=== PATIENT | male | born 1940 | race Caucasian/White ===

== ENCOUNTER 2018-01-06 06:21 | Day surgery (SDC) | payer MEDICARE ==
[~2018-01-06 06:21] MED LIST: Acetaminophen TAB* 325 MG PO PRN; Buffered Lidocaine 0.9% SYRIN* 5 ML/SYR SYRINGE INTRADERM ONE; mitoMYcin PWD* 0.2 MG in Sterile Water for Inj* 1 ML OPHTHALMIC SCH
[2018-01-06] MEDS ORDERED: fentaNYL* 50 MCG/ML 2 ML VIAL (100 MCG VIAL) ONE (07:15)
[2018-01-06] MEDS ORDERED: Midazolam* 1 MG/ML 5 ML VIAL (5 MG) ONE (07:16)
[2018-01-06 07:55] VITALS: BP 116/63
--- NOTE | 2018-01-06 13:28 | OP ---
OPERATIVE REPORT: DATE OF OPERATION: DATE OF : 38 SURGEON: Alexis Syed MD ANESTHESIA: Local MAC. PRE-OP DIAGNOSIS: Primary open angle glaucoma, right eye. POST-OP DIAGNOSIS: Primary open angle glaucoma, right eye. OPERATIVE PROCEDURE: Insertion of Xen Gel stent right eye. COMPLICATIONS: None. DESCRIPTION OF PROCEDURE: The patient was given topical 2% lidocaine with epinephrine topical. The Xen implant was checked and marked with a marking pen. Paracentesis made with a 20-gauge keratome at the 10 o'clock position. Anterior chamber irrigated with 1% non-preserved intracameral lidocaine josh led with Healon. A 1.8 mm clear corneal incision was made at the 7 o'clock position. 3 mm posterior to the limbus was marked with a sterile marking pen at 12 o'clock. Mitomycin-C 0.2 mg/mL infused sub tenon in that area. The Xen implant was placed at the 1 o'clock position without difficulty. Healon irrigated out of the eye. Topical Maxitrol drops were given. [id number]/[facility] #: [id number]
[2018-01-06] MEDS ORDERED: Ketorolac 0.5% OPHTH (NF) 0.5 % 5 ML BTL ONE (15:04)
[2018-01-06] MEDS ORDERED: Povidone Iodine 5% OPTH* 30 ML BTL ONE (15:04)
[2018-01-06] MEDS ORDERED: Neomycin/Polymy/Dex OPTH.SUSP* MAXITROL 0.1% 5 ML ONE (15:04)
[2018-01-06] MEDS ORDERED: acetaZOLAMIDE TAB* 250 MG ONE (15:04)
[2018-01-06] MEDS ORDERED: Phenylephrine 2.5% OPTH.SOL* 2 ML BTL ONE (15:04)
[2018-01-06] MEDS ORDERED: Lidocaine 2% EPI 1:200000 MPF*10-20 ML VIAL ONE (15:04)
[2018-01-06] MEDS ORDERED: Lidocaine 1%* 5 ML VIAL ONE (15:04)
[2018-01-06] MEDS ORDERED: Cyclopentolate 1% OPTH.SOL* 2 ML BTL ONE (15:04)
[2018-01-06] MEDS ORDERED: Proparacaine 0.5% OPHTH.SOL* 15 ML BTL ONE (15:05)
== END 2018-01-06 08:00 | disposition home or self-care (01) ==
LOC: OREAST 06:21
PROVIDERS: ATTEND Specialist
DX: H40.1111 Primary open-angle glaucoma, right eye, mild stage (principal); Z72.0 Tobacco use; M19.90 Unspecified osteoarthritis, unspecified site
CPT/HCPCS: A9270-GY; C1725; J2250; J3010; J9280